=== PATIENT | male | born 1985 | race Caucasian/White ===

== ENCOUNTER 2016-07-19 04:33 | Emergency (ER) | payer OTHER ==
[~2016-07-19] VITALS: Ht 177.8 cm; Wt 72.7 kg
[~2016-07-19 04:33] MED LIST: KEFLEX500 MG PO; NAPROXEN500 MG PO; SILVADENE20 GM TP
[2016-07-19 04:57] LABS: ADD MIUA? YES; BILIRUBIN NEGATIVE; BLOOD SMALL; COLOR YELLOW ((YELLOW)); GLUCOSE (STRIP) NEGATIVE; KETONES NEGATIVE; LEUKOCYTES NEGATIVE; NITRITE NEGATIVE; PROTEIN (STRIP) 30; SPECIFIC GRAVITY 1.014 (1.000-1.030); UROBILINOGEN 0.2 MG/DL (0.2-1.0)
[2016-07-19 05:02] LABS: HEMATOCRIT 39.9 % (38.0-50.0); MCH 31.8 PG (29.0-34.0); MCHC 34.8 G/DL (30.0-36.0); MCV 91.3 FL (86-99); MEAN PLAT.VOLUME 10.7 uM^3 (9.0-12.4); PLATELET COUNT 258 K/uL (156-360); RBC DIS.WIDTH-CV 12.2 % (11.8-14.6); RBC DIS.WIDTH-SD 41.1 % (39-53); RED BLOOD COUNT 4.37 M/uL (4.00-5.50); WHITE BLOOD COUNT 14.5 K/uL (4.1-10.2)
[2016-07-19 05:02] LABS: BACTERIA NONE SEEN /HPF; EPITHELIAL CELLS RARE /HPF; MUCUS TRACE /LPF; UCUL ADDED? NO; WHITE BLOOD CELLS 0-5 /HPF (0-5)
[2016-07-19 05:22] LABS: CHLORIDE 104 mEq/L (99-109); POTASSIUM 3.8 mEq/L (3.7-5.4); SODIUM 141 mEq/L (136-147)
[2016-07-19 05:24] LABS: GLUCOSE 118 mg/dL (70-99)
[2016-07-19 05:25] LABS: ANION GAP 13 MEQ/L (2-14)
[2016-07-19 05:27] LABS: GFR ESTIMATE (CALCULATED) > 59 mL/min/
[2016-07-19 05:28] LABS: UREA NITROGEN (BUN) 19 mg/dL (9-23)
[2016-07-19 07:18] LABS: AMPHETAMINE NEGATIVE (500 ng/mL); BARBITURATES NEGATIVE (200 ng/mL); BENZODIAZEPINES NEGATIVE (150 ng/mL); COCAINE NEGATIVE (150 ng/mL); INTERNAL CONTROLS VALID? YES; METHADONE NEGATIVE (200 ng/mL); METHAMPHETAMINE NEGATIVE (500 ng/mL); OPIATES (MORPHINE) NEGATIVE (100 ng/mL); OXYCODONE NEGATIVE (100 ng/mL); PHENCYCLIDINE NEGATIVE (25 ng/mL); PROPOXYPHENE NEGATIVE (300 ng/mL); THC CANNABINOIDS PRESUMPTIVE POSITIVE (50 ng/mL); TRICYCLIC ANTIDEPRESSANTS NEGATIVE (300 ng/mL)
[2016-07-19 07:19] LABS: ADD MEDTOX COMMENT Y
[2016-07-19] MEDS ORDERED: ZOFRAN4 MG PO (09:29)
[2016-07-19] MEDS ORDERED: TORADOL10 MG PO (09:29)
[2016-07-19] MEDS ORDERED: FLOMAX0.4 MG PO (09:29)
[2016-07-19] MEDS ORDERED: MORPHINE SULFAT30 M2 PO (09:39)
[2016-07-19 09:50] VITALS: BP 125/69
== END 2016-07-19 09:50 | disposition home or self-care (01) ==
LOC: EME 04:33
DX: N13.2 Hydronephrosis with renal and ureteral calculous obstruction (principal); N20.0 Calculus of kidney; J45.909 Unspecified asthma, uncomplicated; K21.9 Gastro-esophageal reflux disease without esophagitis; F17.200 Nicotine dependence, unspecified, uncomplicated
CPT/HCPCS: 74176; 80048; 81003; 84999; 85027; 99281; 99285; J1885; J2405; J7030

== ENCOUNTER 2017-01-05 17:46 | Emergency (ER) | payer OTHER ==
[~2017-01-05] VITALS: Ht 175.3 cm; Wt 64.8 kg
[~2017-01-05 17:46] MED LIST changes: +FLOMAX0.4 MG PO; +MORPHINE SULFAT30 M2 PO; +TORADOL10 MG PO; +ZOFRAN4 MG PO
[2017-01-05 18:02] VITALS: BP 122/70
== END 2017-01-05 20:12 | disposition home or self-care (01) ==
LOC: EME 17:46
DX: S29.012A Strain of muscle and tendon of back wall of thorax, initial encounter (principal); V43.52XA Car driver injured in collision with other type car in traffic accident, initial encounter; Y92.488 Other paved roadways as the place of occurrence of the external cause; G89.29 Other chronic pain; F17.200 Nicotine dependence, unspecified, uncomplicated
CPT/HCPCS: 72070; 99281; 99283